=== PATIENT | female | born 1970 | race Caucasian/White ===

== ENCOUNTER 2016-11-12 14:13 | Emergency (ER) | payer SELFPAY ==
[~2016-11-12] VITALS: Ht 160 cm; Wt 81.6 kg
[~2016-11-12 14:13] MED LIST: LEVO0.124 PO
[2016-11-12 14:36] VITALS: BP 140/74
--- NOTE | 2016-11-12 15:28 | NUR ---
PT TO BED 3
[2016-11-12] MEDS ORDERED: ASPIRIN 81 MG TAB.CHEW PO ONE (15:30)
[2016-11-12] MEDS ORDERED: NACL 0.9% 1,000 ML IV ONE (15:30)
--- NOTE | 2016-11-12 15:30 | NUR ---
PT PRESENTS TO ER W/C/O CHEST PAIN SINCE 0600. HX HYPOTHYROIDISM; DENIES N/V/D; SKIN IS PINK/WARM/DRY; AAOX4 WITH EVEN AND STEADY GAIT; LUNGS CLEAR BL; HR EVEN AND REGULAR; PT DENIES ANY FEVER, CP, SOB, OR COUGH AT THIS TIME; PATIENT STATES PAIN OF 6/10 AT THIS TIME; VSS; PATIENT POSITIONED FOR COMFORT; HOB ELEVATED; BEDRAILS UP X2; BED DOWN. ER MD MADE AWARE OF PT STATUS.
[2016-11-12] MEDS ORDERED: KETOROLAC 30 MG/ML VIAL IVP ONE (15:35)
[2016-11-12 15:56] LABS: BASOPHILS # (AUTO) 0.1 K/uL (0.00-0.22); BASOPHILS % (AUTO) 0.8 % (0.0-2.0); EOSINOPHILS # (AUTO) 0.4 K/uL (0-0.4); EOSINOPHILS % (AUTO) 4.1 % (0.0-4.0); HEMATOCRIT 31.8 % (36-48); HEMOGLOBIN 9.4 g/dL (12.0-16.0); LYMPHOCYTES # (AUTO) 2.9 K/uL (2.5-16.5); LYMPHOCYTES % (AUTO) 27.1 % (20.5-51.1); MEAN CORPUSCULAR HEMOGLOBIN 19 pg (27-31); MEAN CORPUSCULAR HGB CONC 30 g/dL (33-37); MEAN CORPUSCULAR VOLUME 64 fL (80-94); MONOCYTES # (AUTO) 1.1 K/uL (0.8-1.0); MONOCYTES % (AUTO) 9.8 % (1.7-9.3); NEUTROPHILS # (AUTO) 6.4 K/uL (1.8-7.7); NEUTROPHILS % (AUTO) 58.2 % (42.2-75.2); PLATELET COUNT (AUTO) 359 K/uL (140-450); RED BLOOD CELL COUNT(AUTO) 4.99 MIL/uL (4.20-5.40); RED CELL DISTRIBUTION WIDTH 17.1 % (11.6-13.7); WHITE BLOOD COUNT (AUTO) 10.9 K/uL (4.8-10.8)
[2016-11-12 16:25] LABS: INR 1.1 (0.8-1.2); PARTIAL THROMBOPLASTIN TIME 22.7 secs (22-35.6); PROTHROMBIN TIME 10.2 secs (10.8-13.4)
[2016-11-12 16:31] LABS: ANION GAP 8.5 (8-16); CALCIUM 8.8 mg/dL (8.5-10.1); CARBON DIOXIDE 29.5 mmol/L (21-32)
[2016-11-12 16:32] LABS: ALBUMIN 3.6 g/dL (3.4-5.0); CREATININE 0.6 mg/dL (0.6-1.3); TOTAL BILIRUBIN 0.3 mg/dL (0.0-1.0); TOTAL PROTEIN, SERUM 7.5 g/dL (6.4-8.2)
[2016-11-12 17:40] VITALS: BP 125/54
== END 2016-11-12 17:40 | disposition home or self-care (01) ==
LOC: MED 14:13
DX: R07.89 Other chest pain (principal); R03.0 Elevated blood-pressure reading, without diagnosis of hypertension; J45.909 Unspecified asthma, uncomplicated
CPT/HCPCS: 36415; 71010; 80053; 81025; 84484; 85025; 85610; 85730; 93005; 96361; 96374; 99285; J1885; J7030; Q0092

== ENCOUNTER 2018-08-17 18:49 | Emergency (ER) | payer SELFPAY ==
[~2018-08-17] VITALS: Ht 160 cm; Wt 94.8 kg
[2018-08-17 18:58] VITALS: BP 138/70
--- NOTE | 2018-08-17 19:26 | NUR ---
PT TO ED WITH C/O SHARP HEADACHE X 2 DAYS WITH COUGH AND COLD SYMPTOMS. LUNG SOUNDS CLEAR TO ASCULTATION BILATERALLY. PT DENIES N/V/D. PT PLACED INTO BED, PENDING MD ALVARADO. HX; THYROID, ANEMIA RX; LEVOTHYROXINE, FE
--- NOTE | 2018-08-17 19:26 | NUR ---
TO ER BED 4
[2018-08-17 20:18] VITALS: BP 131/86
--- NOTE | 2018-08-17 20:18 | NUR ---
Patient discharged with v/s stable. Written and verbal after care instructions given and explained. Patient alert, oriented and verbalized understanding of instructions. Ambulatory with steady gait. All questions addressed prior to discharge. ID band removed. Patient advised to follow up with PMD. Rx of DIMETAPP, AMOXICILLIN, MOTRIN given. Patient educated on indication of medication including possible reaction and side effects. Opportunity to ask questions provided and answered.
== END 2018-08-17 20:19 | disposition home or self-care (01) ==
LOC: MED 18:49
DX: J06.9 Acute upper respiratory infection, unspecified (principal); Z98.51 Tubal ligation status
CPT/HCPCS: 99283

== ENCOUNTER 2021-09-10 19:29 | Emergency (ER) | payer OTHER ==
[~2021-09-10] VITALS: Ht 160 cm; Wt 95.7 kg
[2021-09-10 19:35] VITALS: BP 181/85
--- NOTE | 2021-09-10 19:42 | NUR ---
patient to the bathroom for urine collection.
--- NOTE | 2021-09-10 19:46 | NUR ---
patient sent to lobby
[2021-09-10] MEDS ORDERED: FAMOTIDINE 20 MG TAB PO ONE (21:00)
[2021-09-10] MEDS ORDERED: KETOROLAC 30 MG/ML VIAL IM ONE (21:00)
[2021-09-10] MEDS ORDERED: ALUMINUM HYD/MAG/SIMETHICONE 30 ML UDC PO ONE (21:00)
[2021-09-10 21:22] LABS: BASOPHILS # (AUTO) 0.1 K/uL (0.00-0.22); BASOPHILS % (AUTO) 0.9 % (0.0-2.0); EOSINOPHILS # (AUTO) 0.4 K/uL (0-0.4); EOSINOPHILS % (AUTO) 4.4 % (0.0-4.0); HEMATOCRIT 38.3 % (36-48); LYMPHOCYTES # (AUTO) 2.2 K/uL (2.5-16.5); LYMPHOCYTES % (AUTO) 23.4 % (20.5-51.1); MEAN CORPUSCULAR HEMOGLOBIN 29 pg (27-31); MEAN CORPUSCULAR HGB CONC 34 g/dL (33-37); MEAN CORPUSCULAR VOLUME 86.2 fL (80-94); MONOCYTES % (AUTO) 10.1 % (1.7-9.3); NEUTROPHILS # (AUTO) 5.9 K/uL (1.8-7.7); NEUTROPHILS % (AUTO) 61.2 % (42.2-75.2); PLATELET COUNT (AUTO) 318 K/uL (140-450); RED BLOOD CELL COUNT(AUTO) 4.45 MIL/uL (4.20-5.40); RED CELL DISTRIBUTION WIDTH 14.5 % (11.6-13.7); WHITE BLOOD COUNT (AUTO) 9.6 K/uL (4.8-10.8)
[2021-09-10 22:00] LABS: ALBUMIN 3.3 g/dL (3.4-5.0); ANION GAP 9.6 (8-16); CARBON DIOXIDE 28.7 mmol/L (21-32); CREATININE 0.6 mg/dL (0.6-1.3); POTASSIUM 4.3 mmol/L (3.5-5.1); TOTAL BILIRUBIN 0.2 mg/dL (0.0-1.0)
[2021-09-10] MEDS ORDERED: IBUP-2213 PO (22:45)
[2021-09-10] MEDS ORDERED: FAMO-90 PO (22:45)
[2021-09-10] MEDS ORDERED: ALUM355S59 PO (22:45)
[2021-09-10 23:01] VITALS: BP 150/96
--- NOTE | 2021-09-10 23:03 | NUR ---
Patient discharged with v/s stable. Written and verbal after care instructions given and explained. Patient alert, oriented and verbalized understanding of instructions. Ambulatory with steady gait. All questions addressed prior to discharge. ID band removed. Patient advised to follow up with PMD. Rx of MAALOX, PEPCID, AND IBUPROFEN given. Patient educated on indication of medication including possible reaction and side effects. Opportunity to ask questions provided and answered.
== END 2021-09-10 23:01 | disposition home or self-care (01) ==
LOC: MED 19:29
DX: R10.9 Unspecified abdominal pain (principal); G89.29 Other chronic pain; R14.0 Abdominal distension (gaseous); J45.909 Unspecified asthma, uncomplicated; E03.9 Hypothyroidism, unspecified; Z79.899 Other long term (current) drug therapy; Z98.890 Other specified postprocedural states
CPT/HCPCS: 36415; 80053; 81025; 83690; 85025; 96372; 99283; J1885

== ENCOUNTER 2022-08-09 23:15 | Emergency (ER) | payer OTHER ==
[~2022-08-09] VITALS: Ht 160 cm; Wt 88.1 kg
[~2022-08-09 23:15] MED LIST changes: +ALUM355S59 PO; +FAMO-90 PO; +IBUP-2213 PO
[2022-08-09 23:30] VITALS: BP 141/102
--- NOTE | 2022-08-09 23:33 | NUR ---
to lobby a/w bed ambulatory
--- NOTE | 2022-08-10 00:41 | NUR ---
PT TO [facility]
[2022-08-10] MEDS ORDERED: KETOROLAC 30 MG/ML VIAL IM ONE (02:05)
[2022-08-10] MEDS ORDERED: NAPR-54 PO (02:24)
[2022-08-10] MEDS ORDERED: ACET-5629 PO (02:24)
[2022-08-10] MEDS ORDERED: METH-1681 PO (02:24)
[2022-08-10] MEDS ORDERED: EMLAC TP (02:24)
[2022-08-10 02:34] VITALS: BP 141/102
--- NOTE | 2022-08-10 02:34 | NUR ---
Patient discharged with v/s stable. Written and verbal after care instructions given and explained. Patient alert, oriented and verbalized understanding of instructions. Ambulatory with steady gait. All questions addressed prior to discharge. ID band removed. Patient advised to follow up with PMD. Rx of NAPROSYN, LIDOCAINE/PRILOCAINE, ROBAXIN given. Patient educated on indication of medication including possible reaction and side effects. Opportunity to ask questions provided and answered.
== END 2022-08-10 02:34 | disposition home or self-care (01) ==
LOC: MED 23:15
DX: S39.012A Strain of muscle, fascia and tendon of lower back, initial encounter (principal); S76.312A Strain of muscle, fascia and tendon of the posterior muscle group at thigh level, left thigh, initial encounter; J45.909 Unspecified asthma, uncomplicated; E03.9 Hypothyroidism, unspecified; X58.XXXA Exposure to other specified factors, initial encounter; Y93.89 Activity, other specified; Y92.89 Other specified places as the place of occurrence of the external cause; Y99.8 Other external cause status
CPT/HCPCS: 96372; 99283; J1885

== ENCOUNTER 2022-11-14 16:55 | Emergency (ER) | payer OTHER ==
[~2022-11-14] VITALS: Ht 165.1 cm; Wt 88.0 kg
[~2022-11-14 16:55] MED LIST changes: +ACET-5629 PO; +EMLAC TP; +METH-1681 PO; +NAPR-54 PO
[2022-11-14 17:17] VITALS: BP 183/103
--- NOTE | 2022-11-14 17:29 | NUR ---
Patient ambulated to bed 9.
--- NOTE | 2022-11-14 17:35 | NUR ---
52/f walked in c/o mid lower back pain radiating to left leg x 4 days. denies fall or trauma. reports constant aching pain. ambulatory, vitals stable. hx: htn
[2022-11-14] MEDS ORDERED: methocarbamoL 500 MG TAB PO STA (17:42)
[2022-11-14] MEDS ORDERED: LIDOCAINE 5% 1 EA PATCH TP ONE (17:45)
[2022-11-14] MEDS ORDERED: KETOROLAC 15 MG/ML VIAL IM ONE (17:45)
[2022-11-14] MEDS ORDERED: ACETAMINOPHEN 325 MG TAB PO ONE (17:45)
[2022-11-14] MEDS ORDERED: HYDROcodone/APAP 5/325 MG 1 TAB TAB PO ONE (18:20)
[2022-11-14] MEDS ORDERED: diazePAM 5 MG TAB PO ONE (18:20)
[2022-11-14 18:40] LABS: APPEARANCE,URINE CLEAR (CLEAR); BILIRUBIN,URINE NEGATIVE (NEGATIVE); BLOOD, URINE NEGATIVE (NEGATIVE); COLOR,URINE YELLOW (YELLOW); LEUKOCYTE ESTERASE ,URINE NEGATIVE (NEGATIVE); NITRITE, URINE NEGATIVE (NEGATIVE); PH,URINE 5.5 (5.0-9.0); UGLUCOSE NEGATIVE (NEGATIVE)
[2022-11-14] MEDS ORDERED: DICL100G5 TP (20:28)
[2022-11-14] MEDS ORDERED: PRED20TA5 PO (20:28)
[2022-11-14] MEDS ORDERED: LID5T TP (20:28)
[2022-11-14] MEDS ORDERED: METH-1681 PO (20:28)
[2022-11-14 20:49] VITALS: BP 162/89
--- NOTE | 2022-11-14 20:50 | NUR ---
Patient discharged with v/s stable. Written and verbal after care instructions given and explained. Patient alert, oriented and verbalized understanding of instructions. All questions addressed prior to discharge. ID band removed. Patient advised to follow up with PMD. Rx sent to preferred pharmacy. Patient educated on indication of medication including possible reaction and side effects. Opportunity to ask questions provided and answered.
== END 2022-11-14 20:50 | disposition home or self-care (01) ==
LOC: MED 16:55
DX: M54.17 Radiculopathy, lumbosacral region (principal); J45.909 Unspecified asthma, uncomplicated; E03.9 Hypothyroidism, unspecified; I10 Essential (primary) hypertension; Z90.710 Acquired absence of both cervix and uterus; Z79.899 Other long term (current) drug therapy; Z79.1 Long term (current) use of non-steroidal anti-inflammatories (NSAID)
CPT/HCPCS: 72131; 81003; 81025; 96372; 99285; J1885

== ENCOUNTER 2024-04-20 20:11 | Emergency (ER) | payer OTHER ==
[~2024-04-20] VITALS: Ht 160 cm; Wt 89.8 kg
[~2024-04-20 20:11] MED LIST changes: +DICL100G32 TP; +LID5T TP; +NAPR-337 PO; -NAPR-54 PO; +PRED20TA5 PO
[2024-04-20 20:28] VITALS: PULSE 83; RESP 18; TEMP 98.2; O2SAT 98
[2024-04-20 21:09] LABS: BILIRUBIN,URINE NEGATIVE (NEGATIVE); BLOOD, URINE NEGATIVE (NEGATIVE); COLOR,URINE YELLOW (YELLOW); LEUKOCYTE ESTERASE ,URINE NEGATIVE (NEGATIVE); NITRITE, URINE NEGATIVE (NEGATIVE); PROTEIN,URINE TRACE (NEGATIVE); UGLUCOSE NEGATIVE (NEGATIVE); UROBILINOGEN,URINE 0.2 EU/dL (0.2 - 1)
[2024-04-20 21:11] LABS: APPEARANCE,URINE SLIGHTLY HAZY (CLEAR)
[2024-04-20 21:15] LABS: BACTERIA,URINE 1+ /HPF (None Seen); MUCUS,URINE None Seen /LPF (None Seen); RBC,URINE 0-5 /HPF (0-5); SQUAMOUS EPITHELIAL CELL,UR 4-10 (MOD) /LPF (0-3 (FEW)); WBC,URINE 0-5 /HPF (0-5)
[2024-04-20] MEDS: NACL 0.9% 1,000 ML IV ONE (22:05)
[2024-04-20 22:18] LABS: BASOPHILS # (AUTO) 0.1 K/uL (0.00-0.22); BASOPHILS % (AUTO) 0.5 % (0.0-2.0); EOSINOPHILS # (AUTO) 0.2 K/uL (0-0.4); EOSINOPHILS % (AUTO) 1.7 % (0.0-4.0); HEMATOCRIT 39.1 % (36-48); LYMPHOCYTES # (AUTO) 2.4 K/uL (2.5-16.5); LYMPHOCYTES % (AUTO) 19.8 % (20.5-51.1); MEAN CORPUSCULAR HEMOGLOBIN 29 pg (27-31); MEAN CORPUSCULAR HGB CONC 33 g/dL (33-37); MEAN CORPUSCULAR VOLUME 86.2 fL (80-94); MONOCYTES # (AUTO) 1.1 K/uL (0.8-1.0); MONOCYTES % (AUTO) 8.8 % (1.7-9.3); NEUTROPHILS # (AUTO) 8.5 K/uL (1.8-7.7); NEUTROPHILS % (AUTO) 69.2 % (42.2-75.2); PLATELET COUNT (AUTO) 304 K/uL (140-450); RED BLOOD CELL COUNT(AUTO) 4.53 MIL/uL (4.20-5.40); RED CELL DISTRIBUTION WIDTH 15.6 % (11.6-13.7); WHITE BLOOD COUNT (AUTO) 12.3 K/uL (4.8-10.8)
[2024-04-20 22:24] LABS: ANION GAP 13.9 (8-16); CALCIUM 10.1 mg/dL (8.5-10.1); CARBON DIOXIDE 24.5 mmol/L (21-32); CREATININE 0.8 mg/dL (0.6-1.3); POTASSIUM 3.4 mmol/L (3.5-5.1)
[2024-04-20 22:30] LABS: ALBUMIN 3.3 g/dL (3.4-5.0); BILIRUBIN,DIRECT 0.1 mg/dL (0.0-0.3); TOTAL BILIRUBIN 0.4 mg/dL (0.0-1.0); TOTAL PROTEIN, SERUM 7.2 g/dL (6.4-8.2)
[2024-04-20] MEDS: POTASSIUM CHLORIDE 10 MEQ TABER PO ONE (22:44)
[2024-04-20] MEDS ORDERED: ONDA-188 SL (22:54)
[2024-04-20 23:01] VITALS: BP 135/85; PULSE 80; RESP 17; TEMP 98.3; O2SAT 98
== END 2024-04-20 23:01 | disposition home or self-care (01) ==
LOC: MED 20:11
DX: A08.4 Viral intestinal infection, unspecified (principal); J45.909 Unspecified asthma, uncomplicated; E03.9 Hypothyroidism, unspecified; I10 Essential (primary) hypertension; Z79.899 Other long term (current) drug therapy
CPT/HCPCS: 36415; 80048; 80076; 81001; 81025; 83690; 85025; 96360; 99283; J7030